=== PATIENT | female | born 1975 | race Caucasian/White ===

== ENCOUNTER 2020-06-29 06:03 | Day surgery (SDC) | payer OTHER ==
[2020-06-26 13:33] VITALS: BMI 25.7
[2020-06-29] MEDS ORDERED: PROPOFOL 20 ML ONE (07:04)
[2020-06-29] MEDS ORDERED: SUCCINYLCHOLINE CHLORIDE 200 MG/10 ML SYRINGE ONE (07:04)
[2020-06-29] MEDS ORDERED: MIDAZOLAM HCL 2 MG/2 ML SINGLE DOSE VIAL ONE (07:04)
[2020-06-29] MEDS ORDERED: ACETAMINOPHEN 325 MG TABLET (FP) PO PRN (07:12)
[2020-06-29] MEDS ORDERED: BUPIVACAINE HCL/PF 0.25% (2.5MG/ML) 10 ML VIAL ONE (07:18)
[2020-06-29] MEDS ORDERED: CLINDAMYCIN 600 MG PREMIX BAG IVPB ONE (07:40)
[2020-06-29] MEDS ORDERED: BUPIVACAINE HCL/PF 0.25% (2.5MG/ML) 10 ML VIAL IJ ONE ×2 (07:46)
[2020-06-29] MEDS ORDERED: ONDANSETRON 4 MG/2 ML VIAL ONE (09:04)
[2020-06-29] MEDS ORDERED: ONDANSETRON 4 MG/2 ML VIAL IVPUSH ONE (09:06)
[2020-06-29] MEDS ORDERED: PROMETHAZINE HCL 25 MG/1 ML VIAL IVPB PRN (09:09)
[2020-06-29] MEDS ORDERED: oxyCODONE HCL 5 MG TABLET PO PRN (09:09)
[2020-06-29] MEDS ORDERED: ONDANSETRON 4 MG/2 ML VIAL IVPUSH PRN (09:09)
[2020-06-29] MEDS ORDERED: LACTATED RINGERS SOLUTION 1,000 ML IV SCH (09:15)
[2020-06-29 09:36] VITALS: PULSE 80; TEMP 98.6
[2020-06-29 10:03] VITALS: BP 136/77
== END 2020-06-29 10:20 | disposition home or self-care (01) ==
LOC: FASU 06:03
PROVIDERS: ATTEND Orthopaedic Surgery
PROC: 01N50ZZ Release Median Nerve, Open Approach (ICD-10-PCS; principal; 2020-06-29 07:30)
DX: G56.01 Carpal tunnel syndrome, right upper limb (principal)
CPT/HCPCS: 81025; 94760